=== PATIENT | male | born 1985 | race Asian ===

== ENCOUNTER 2018-03-07 01:57 | Emergency (ER) | payer OTHER ==
[~2018-03-07] VITALS: Ht 180.3 cm; Wt 81.6 kg
[2018-03-07 01:57] VITALS: BP 141/73
--- NOTE | 2018-03-07 02:15 | NUR ---
Pt BIBSELF FROM HOME C/O LEFT SHOULDER PAIN. PER Pt STATEMENT SAID THAT HIS LEFT SHOULDER "POPPED OUT AND BACK IN". ALSO C/O CHRONIC MID BACK PAIN. Pt IS ALSO REQUESTING FOR A REFILL OF HIS XANAX. Pt IS IN BED. NO S/S OF ACUTED SITRESS OR SOB NOTED. Pt BEING SEEN BY .
--- NOTE | 2018-03-07 02:39 | NUR ---
XR BEING DONE AT BEDSIDE
--- NOTE | 2018-03-07 02:57 | NUR ---
Patient discharged to home in stable condition. Written and verbal after care instructions given. Patient verbalizes understanding of instruction. Patient left facility on foot with steady gait. No s/s of acute distress or sob noted. VS stable.
== END 2018-03-07 03:04 | disposition home or self-care (01) ==
LOC: ER 02:01
DX: M25.512 Pain in left shoulder (principal); G89.29 Other chronic pain; M54.9 Dorsalgia, unspecified; F41.9 Anxiety disorder, unspecified
CPT/HCPCS: 73030; 99284; A4606; Z7610

== ENCOUNTER 2019-11-24 20:14 | Emergency (ER) | payer OTHER ==
[~2019-11-24] VITALS: Ht 177.8 cm; Wt 72.6 kg
[2019-11-24] MEDS ORDERED: KETOROLAC TROMETHAMINE INJ 30 MG/ML VIAL IV ONE (21:00)
[2019-11-24] MEDS ORDERED: KETAMINE HCL (500MG/10ML) 50 MG/ML VIAL IV ONE (21:00)
--- NOTE | 2019-11-24 21:00 | NUR ---
LT SHOULDER PAIN; POSS DISLOCATION OR FX S/P FALL IN BATHROOM D/T CRUTCHES RECENT RT FOOT SX 11/14, WITH CAST +FEVER, +TACHY. PT AAOX4, VSS. RR EVEN & UNLABORED. DENIES CP, SOB, DIZZINESS, N/V/D AT THIS TIME. PT SEEN & EVAL'D BY DR. EDMOND. WILL CONT TO MONITOR.
[2019-11-24 21:10] LABS: BASOPHILS % (AUTO) 0.3 % (0.0-2.0); EOSINOPHILS % (AUTO) 0.1 % (0.0-6.0); HEMATOCRIT 44 % (39-51); HEMOGLOBIN 14.8 g/dL (13.5-17.5); LYMPHOCYTES # (AUTO) 0.5 /CMM (0.8-4.8); LYMPHOCYTES % (AUTO) 4.7 % (20.0-44.0); MEAN CORPUSCULAR HGB CONC 34 g/dl (31.0-36.0); MEAN CORPUSCULAR VOLUME 89 fL (80-96); MONOCYTES # (AUTO) 0.6 /CMM (0.1-1.30); MONOCYTES % (AUTO) 5.3 % (2.0-12.0); NEUTROPHILS # (AUTO) 10.4 /CMM (1.8-8.9); NEUTROPHILS % (AUTO) 89.6 % (43.0-81.0); PLATELET COUNT (AUTO) 219 /CMM (150-450); RED BLOOD CELL COUNT(AUTO) 4.95 MIL/uL (4.5-6.0); WHITE BLOOD COUNT (AUTO) 11.6 K/uL (4.3-11.0)
[2019-11-24 21:18] LABS: CREATININE 0.9 mg/dL (0.6-1.3); POTASSIUM 3.8 mmol/L (3.5-5.1)
[2019-11-24] MEDS ORDERED: KETOROLAC TROMETHAMINE 15 MG/ML VIAL ONE (21:37)
--- NOTE | 2019-11-24 21:40 | NUR ---
MEDICATED FOR PAIN PER ERMD ORDER, PT JUSTIN WELL.
--- NOTE | 2019-11-24 22:18 | NUR ---
Patient discharged to home in stable condition. Written and verbal after care instructions given. Patient verbalizes understanding of instruction. IV removed. Catheter intact and site benign. Pressure and 4x4 applied to site. No bleeding noted.
[2019-11-24 22:19] VITALS: BP 118/75
== END 2019-11-24 22:19 | disposition home or self-care (01) ==
LOC: ER 20:15
DX: M25.512 Pain in left shoulder (principal); G89.29 Other chronic pain; M54.9 Dorsalgia, unspecified
CPT/HCPCS: 29105; 36415; 73030; 80048; 85025; 96374; 99284; J1885